=== PATIENT | female | born 1990 | race Caucasian/White ===

== ENCOUNTER 2024-12-19 16:31 | Emergency (ER) | payer BC, SELFPAY ==
[2024-12-19 16:33] VITALS: BP 142/86; PULSE 100; RESP 18; TEMP 36.8; O2SAT 100
--- OUTSIDE RECORDS SUMMARY | 2024-12-19 17:40 | XMS_ITS | Encounter Summary ---
Author Organization [facility] Address [address] [place] [address] Phone Care Team Providers Care Button Maker Name Role Phone Amanda Trna MD Primary Care Provider Encounter Details Date Type Department Care Team (Latest Contact Info) Description 03/04/2017 Orders Only [facility] CONVERSION Scanning, Provider Social History Tobacco Use Types Packs/Day Years Used Date Smoking Tobacco: Never Smokeless Tobacco: Never Alcohol Use Standard Drinks/Week Comments Yes 0 (1 standard drink = 0.6 oz pur e alcohol) prior to Comments Yes Sex and Gender Information Value Date Recorded Sex Assigned at Not on file Legal Sex Female 1:17 PM CDT Gender Identity Not on file Sexual Orientation Not on file documented as of this encounter Plan of Treatment Not on file documented as of this encounter Procedures Procedure Name Priority Date/Time Associated Diagnosis Comments OBSTETRIC/GYNECOLOGY ULTRASONOGRAPHY REPORT 03/04/2017 11:04 AM CRIB TENDER documented in this encounter Results * OBSTETRIC/GYNECOLOGY ULTRASONOGRAPHY REPORT (03/04/2017 11:04 AM CRIB TENDER) Anatomical Region Laterality Modality Ultrasound us Provider Scanning IMG OB US PROCEDURES Final Res ult documented in this encounter Visit Diagnoses Not on filedocumented in this encounter Care Teams Button Maker Relationship Specialty Start Date End Date Amanda Tran MD [address] [facility] [address] [place] [address] PCP - General 01/27/17 documented as of this encounter
--- OUTSIDE RECORDS SUMMARY | 2024-12-19 17:41 | XMS_ITS | Clinical Summary ---
Author Organization [address] Address [facility] [place] [address] Care Team Providers Care Rn Orthopaedic Name Role Phone Amanda Tran MD Primary Care Provider Allergies No known active allergies Medications FLUOXETINE 10 mg capsule TK 1 C PO QAM 0 10/03/2018 Active omeprazole (PriLOSEC) 40 mg capsule Take 1 capsule (40 mg total) by mouth daily Active Hospital, Clinic, or Other Facility Administered Medication Ordered Dose Route Frequency Start Date End Date Status copper (PARAGARD) 380 square mm IUD 1 eachIndications:Pre gnancy Contraception 1 each intrauterine Continuous (implanted device) 08/18/2022 3 Active Active Problems Problem Noted Date Diagnosed Date IUD contraception--Paragard 08/18/2022 Hemorrhoids 03/02/2022 Major depressive disorder, s donell episode, severe without psychotic features 12/09/2016 Overview (03/02/2022): Took zoloft and xanax in past--'did not thrill me' No hospitalization No SA Personal history of nicotine dependence 12/10/19 17 Resolved Problems Problem Noted Date Diagnosed Date Resolved Date Family history of cystic fibrosis 12/03/2020 12/03/2020 Overview (12/03/2020): States mom has CF but her 23and Me test was negative States did not have genetic testing in preg #1 ( ) mom's genetic results. IUD contraception 12/03/2020 11/04/2021 Overview (12/03/2020): paragard Marginal insertion of umbili carmen cord affecting management of mother 03/04/2017 8 Overview (04/29/2017): 03/04/17 brandon reynold noted marginal cord insertion. Growth scan scheduled for 04/15/16. Pt was unhappy with costs so refusing to repeat scan Supervision of other normal , antepartum 02/04/2017 08/17/2017 Overview (07/15/2017): Transferring care from [facility]; OB panel on 01/06/17 (care everywhere) O pos H & H 12 & 35 HIV neg Hep B & C both neg RPR neg TSH wnl Rub Imm Last pap 07/2016 NILM HSV 1 and 2 IgG negative Reports declined CF screen GBS negative Encounters Date Type Department Care Team Description 11/27/2024 1:45 PM CDT Office Visit [facility] [address] [facility] [address] [place] [id number] Gaby Cat NP Well woman exam (Primary Dx); Encounter for breast cancer screening using non-mammogram modality from Last 3 Months Immunizations Immunization Administration Dates Next Due Influenza, Unspecified 01/03/2017 Pfizer SARS-CoV-2 Monovalent Vaccination (12+ Yrs) PURPLE 04/19/2020,03/29/2020 Tdap 07/01/2017 Medical History Medical History Date Comments Seasonal allergies Encounter for IUD insertion para azam 09/16/18 Family History Medical History Relation Name Comments Asthma Brother Bipolar disorder Father Depression Father PTSD Father Heart disease Mother Heart failure Mother heart failure Mother Lung cancer Paternal Grandfather Breast cancer Neg Hx Cystic fibrosis Neg Hx Deep vein thrombosis Neg Hx Ovarian cancer Neg Hx Relation Name Status Comments Brother Alive Father Alive Mother Alive Paternal Grandfather Social History Tobacco Use Types Packs/Day Years Used Date Smoking Tobacco: Every Day Cigarettes 0.3 2.7 Started: 2022 Smokeless Tobacco: Never Tobacco Cessation:Ready to Q uit: Not Asked; Counseling Given: Not Answered Alcohol Use Standard Drinks/Week Comments Yes 0 (1 standard drink = 0.6 oz pur e alcohol) prior to AUDIT-C Answer Date Recorded Q1: How often do you have a drink containing alc ohol? Monthly or less 08/09/2023 Q2: How many drinks containi ng alcohol do you have on a typical day when you are drinking? 1 or 2 08/09/2023 Q3: How often do you have si x or more drinks on one occasion? Monthly 08/09/2023 Comments No Sex and Gender Information Value Date Recorded Sex Assigned at Not on file Legal Sex Female 1:17 PM CDT Gender Identity Not on file Sexual Orientation Not on file Occupation Industry Job Start Date Job End Date [employer] dept Not on file Not on fi le Not on file Obstetrics History Para Term AB IAB SAB Ectopic Multiple Livin g Live Births 2 1 1 1 1 1 1 Date Outcome GA Total Labor Labor/2nd/3rd Weight Sex Type Anes PTL Dora A1 A5 Name Clin Term 2009 IAB Comments 2018 Last Filed Vital Signs Vital Sign Reading Time Taken Comments Blood Pressure 116/72 11/27/2024 1:37 PM CDT Pulse 92 08/04/2017 8:28 AM CDT Temperature - - Respiratory Rate 16 12/03/2020 1:27 PM CDT Oxygen Saturation 100% 08/04/2017 8:28 AM CDT Inhaled Oxygen Concentration - - Weight 105 kg (231 lb 6.4 oz) 11/27/2024 1:37 PM CDT Height 172.7 cm (5' 8) 11/27/2024 1:37 PM CDT Body Mass Index 35.18 11/27/2024 1:37 PM CDT Plan of Treatment Health Maintenance Due Date Last Done Comments Depression Screening 1989 Hepatitis C Screening 1989 Varicella Vaccines (1 of 2 - 13+ 2-dose series) 2002 Hepatitis B Screening 2007 Pneumococcal vaccine <65 (1 of 2 - PCV) 01/10/2008 HPV Vaccines (1 - 3-dose SCD M series) 01/10/2016 Cervical Cancer Screening 08/08/2024 08/09/2023, Covid-19 Vaccine (3 - 2024-2 6 season) 2024 04/19/2020, 03/29/2020 Influenza Vaccine (#1) 2024 , 12/20/2018, 01/03/2017, Additional history exists Regular Well Visit/Exam 18-64 11/27/2025, 08/09/2023, 03/02/2022, Additional history exists DTaP/Tdap/Td Vaccine (2 - Td or Tdap) 07/02/2027 07/01/2017 Procedures Procedure Name Priority Date/Time Associated Diagnosis Comments HIGH RISK HPV DNA DETECTION WITH GENOTYPING Routine 08/09/2023 4:36 PM CDT Well woman exam Cervical cancer screening from Last 3 Months or Most Recently Relevant to Health Maintenance Results * High Risk HPV DNA Detection with Genotyping (Molecular component) (08/09/2023 4:36 PM CDT) HPV HR 16 Not Detected Not Detected [facility] Comment:Testing performed by : [facility], [address] [place]., [address] HPV HR 18 Not Detected Not Detected [facility] Comment:Testing performed by : [facility], [address] [place]., [address] HPV HR Non 16/18 Not Detected Not Detected [facility] Comment: Interpretive Data Nucleic acid amplification for detection of high-risk Human Papilloma virus (HPV) is performed by the Ingrid Timothy 6800 HPV test. This assay specifically detects HPV-16 and HPV-18 genotypes. The following HPV genotypes are detected as high-risk HPV: HPV-31, 33, 35, ,39, 45, 51, 52, 56, 58, 59, 66, and 68. This assay has been approved by the [place] Food and Drug Administration for detection of HPV in cervical specimens collected by a physician using an endocervical brush/spatula or cervical broom and placed in the ThinPrep Pap Test PreservCyt collection containers. The performance characteristics of this test have been verified by the [facility] Molecular Infectious Disease laboratory. Correlate with separately reported cytology results, as applicable. Interpretive data last revised 22 Testing performed by: [facility], [address] [place]., [address] Endocervical 08/09/2023 4:36 PM CDT 08/10/2023 12:27 PM CDT Narrative YAMILE FOSTER - 08/10/2023 6:24 PM CDT Clinical history and diagnosis->2018 NIL HPV Neg Testing type->Screening Last menstrual period (date if known)->07/2023 Contraceptive use->IUD Gaby Cat [employer] LAB BODY FLUIDS AND ST OOLS ORDERABLES Final Result YAMILE [id number] Department [place] [address] [facility] from Last 3 Months or Most Recently Relevant to Health Maintenance Insurance [facility] [employer] Address: [address] [address] [facility] Care Teams Rn Orthopaedic Relationship Specialty Start Date End Date Amanda Tran MD [address] [address] PCP - General 01/27/17
--- NOTE | 2024-12-19 17:56 | ED.WOUNDLAC ---
HPI - Wound/Laceration General Chief Complaint: Wound/Laceration Stated Complaint: L pinky lac Time Seen by Provider: 12/19/24 17:09 Source: patient Mode of arrival: ambulatory Limitations: no limitations History of Present Illness HPI narrative: This is a 34-year-old female that presents to the emergency department for laceration to the left 5th finger. Reports she was trying to cut a acute with sugar and accidentally cut her finger. Reports bleeding and pain to the area. Reports she is up-to-date on tetanus vaccination. Denies decreased range of motion or numbness. Related Data Allergies Allergy/AdvReac Type Severity Reaction Status Date / Time No Known Allergies Allergy Verified 12/19/24 16:31 Review of Systems Review of Systems: All systems reviewed & are unremarkable except as noted in HPI and below Exam Narrative: GENERAL: Well-appearing, well-nourished, and in no acute distress. HEAD: Normocephalic, atraumatic. EYES: EOMI. EXTREMITIES: Normal range of motion. No edema. 1.5 cm linear laceration into subcutaneous tissue to left 5th finger palmar surface proximal phalanx SKIN: Warm, dry, no rash. NEURO: No focal deficits. Alert and oriented x3. PSYCH: Normal mood and affect Course Vital Signs Vital signs: Vital Signs Temperature 98.2 F 12/19/24 16:33 Pulse Rate 100 12/19/24 16:33 Respiratory Rate 18 12/19/24 16:33 Blood Pressure 142/86 H 12/19/24 16:33 Pulse Oximetry 100 12/19/24 16:33 Oxygen Delivery Room Air 12/19/24 16:33 Temperature 98.2 F 12/19/24 16:33 Pulse Rate 100 12/19/24 16:33 Respiratory Rate 18 12/19/24 16:33 Blood Pressure 142/86 H 12/19/24 16:33 Pulse Oximetry 100 12/19/24 16:33 Oxygen Delivery Room Air 12/19/24 16:33 Procedures Laceration Laceration 1: Date: 12/19/24 Time: 18:43 Site: hand Side (If applicable): left Size (cm): 1.5 Description: linear Depth: simple, single layer Local Anesthetic: lidocaine 1% Amount of anesthesia used (mL): 2 Pre-repair: wound explored and irrigated ====== Skin Level ====== Skin layer closed with: nylon Size (cm): 4-0 Number of sutures: 3 Technique: simple, interrupted ====== Subcutaneous Layer ====== ====== Muscle Layer ====== ====== Tendon Layer ====== MDM - Wound/Laceration MDM Narrative Medical decision making narrative: Patient presents the emergency department for laceration of the left 5th finger. She is neurovascularly intact. Wound was irrigated and closed with sutures. Educated on further wound care. She is to follow up with primary provider. She was given warnings to return the ER Differential Diagnosis Differential diagnosis: Likely laceration, abrasion and avulsion of skin Critical Care Time Critical Care Time Critical Care Time: No Discharge Plan Discharge Clinical Impression: Laceration Patient Disposition: Home Condition: Stable Instructions: Care For Your Stitches (ED), Laceration (ED) Additional Instructions: Return to the emergency department if you experience fever, redness or swelling of your wound, abnormal drainage from your wound, or any other symptoms that are concerning to you. Apply antibiotic ointment daily. Do not soak the wound. Clean with mild soap and water daily Follow-up with your primary care doctor for suture removal in 10-14 days. Patient Language: Tanzanian Follow-up/Referrals: MARION,DARYN [Other]
== END 2024-12-19 18:49 | disposition home or self-care (01) ==
PROVIDERS: Emergency Provider Physician Assistant
DX: S61.217A Laceration without foreign body of left little finger without damage to nail, initial encounter (principal); W26.0XXA Contact with knife, initial encounter
CPT/HCPCS: 12001; 99282